=== PATIENT | male | born 1955 | race Caucasian/White ===

== ENCOUNTER 2017-12-11 03:44 | Emergency (ER) | payer SELFPAY ==
--- NOTE | 2017-12-11 04:59 | CT ---
EXAM: CT Head Without Intravenous Contrast CLINICAL HISTORY: Reason: fall TECHNIQUE: Axial computed tomography images of the head/brain without intravenous contrast. CTDI is 57.4 mGy and DLP is 1167.7 mGy-cm. This CT exam was performed using one or more of the following dose reduction techniques: automated exposure control, adjustment of the mA and/or kV according to patient size, and/or use of iterative reconstruction technique. COMPARISON: No relevant prior studies available. FINDINGS: Brain: Unremarkable. No hemorrhage. No significant white matter disease. No edema. Ventricles: Unremarkable. No ventriculomegaly. Bones/joints: Age indeterminate deformity of the left nasal bone. No visualized acute calvarial fracture. Soft tissues: Mild left parietal scalp contusion. Sinuses: Severe mucosal thickening in the nasal cavity. Partial opacification of the left frontoethmoid sinuses. Mastoid air cells: Unremarkable as visualized. No mastoid effusion. IMPRESSION: 1. No acute intracranial hemorrhage or evidence for calvarial fracture. 2. Left parietal scalp contusion. 3. Nasal bone deformities, favored to be chronic. Correlate with focal point tenderness. 4. Severe mucosal disease of the anterior nasal cavity, with mucosal thickening and possible fluid also involving the frontal and ethmoid sinuses. EXAM: CT Cervical Spine Without Intravenous Contrast CLINICAL HISTORY: Reason: fall TECHNIQUE: Axial computed tomography images of the cervical spine without intravenous contrast. CTDI is 57.4 mGy and DLP is 1167.7 mGy-cm. This CT exam was performed using one or more of the following dose reduction techniques: automated exposure control, adjustment of the mA and/or kV according to patient size, and/or use of iterative reconstruction technique. COMPARISON: No relevant prior studies available. FINDINGS: Vertebrae: No evidence for fracture or traumatic malalignment regarding the cervical spine. Discs/spinal canal/neural foramina: Multilevel disc space height loss with osteophytosis. Minimal cervical canal narrowing down to 10 mm. Early facet arthropathy is present with mild neural foraminal stenosis at C5-6 and C6-7. Soft tissues: Unremarkable. Lung apices: Mild apical lung scarring and small blebs. IMPRESSION: No acute CT findings.
--- NOTE | 2017-12-11 06:30 | ED ---
Fall HPI - General Chief Complaint: Fall Stated Complaint: Fall,ETOH Time Seen by Provider: 12/11/17 03:56 Source: patient, family Mode of arrival: wheelchair - History of Present Illness Initial Comments: Patient is a 62-year-old man who is here to be evaluated after a fall and hitting his head. History is from the patient as well as family members. He does admit to drinking. The patient then reportedly fell and struck the left side of his head. Following this she seemed a bit unsteady and family brought him here to have evaluation. He indicates the left temporoparietal area. There was no loss of consciousness. Patient denies neurologic symptoms. He denies pain to the chest, back, abdomen, or extremities. 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 Witnessed: yes, by family Place Fall Occurred: home Loss of Consciousness: none Prolonged Down Time?: no Symptoms Prior to Fall: none Location: head Severity: mild Quality: aching Context: alcohol use Associated Symptoms: headache - Related Data Home Medications Medication Instructions Recorded Confirmed Albuterol Sulfate [Proair Hfa] 1 - 2 puff INHALATION Q6HR PRN 06/12/15 06/13/15 Pravastatin Sodium [Pravachol] 40 mg PO HS 06/12/15 06/13/15 Tadalafil [Cialis] 20 mg PO DAILY PRN 06/12/15 06/13/15 glipiZIDE [Glucotrol] 5 mg PO DAILY 06/12/15 06/13/15 metFORMIN HCL [metFORMIN HCL] 1,000 mg PO BID 06/12/15 06/13/15 Previous Rx's Medication Instructions Recorded HYDROcodone/APAP 7.5-325MG [[place] 1 each PO Q6HR PRN #40 tab 06/13/15 7.5] Allergies Allergy/AdvReac Type Severity Reaction Status Date / Time No Known Allergies Allergy Verified 12/11/17 03:53 Review of Systems ROS Statement: Those systems with pertinent positive or pertinent negative responses have been documented in the HPI. ROS Other: All systems not noted in ROS Statement are negative. Constitutional: Denies: fever, weakness Eyes: Denies: vision change Respiratory: Denies: cough, dyspnea Cardiovascular: Denies: chest pain, syncope Gastrointestinal: Denies: abdominal pain, nausea, vomiting Musculoskeletal: Denies: back pain Skin: Denies: rash Neurological: Reports: headache. Denies: weakness, numbness, paresthesias Hematological/Lymphatic: Denies: easy bleeding Past Medical History Past Medical History: Asthma, Diabetes Mellitus, Hyperlipidemia, Sleep Apnea/ CPAP/BIPAP History of Any Multi-Drug Resistant Organisms: None Reported Past Surgical History: Tonsillectomy Additional Past Surgical History / Comment(s): SIGMOIDOSCOPY Past Anesthesia/Blood Transfusion Reactions: No Reported Reaction Past Psychological History: Depression Smoking Status: Current every day smoker Past Alcohol Use History: Occasional Past Drug Use History: None Reported - Past Family History Mother Family Medical History: Cancer Father Family Medical History: Cancer General Exam Limitations: no limitations General appearance: alert, in no apparent distress, appears intoxicated Head exam: Present: normocephalic, other (There is a scalp hematoma to the left temporal parietal area. No palpable deformity though there is mild localized tenderness.) Eye exam: Present: normal appearance, PERRL, EOMI, nystagmus. Absent: scleral icterus, conjunctival injection ENT exam: Present: normal oropharynx, TM's normal bilaterally, normal external ear exam Neck exam: Present: normal inspection, other (Cervical collar). Absent: tenderness Respiratory exam: Present: normal lung sounds bilaterally. Absent: respiratory distress, wheezes, rales, rhonchi, stridor, chest wall tenderness Cardiovascular Exam: Present: regular rate, normal rhythm, normal heart sounds. Absent: systolic murmur, diastolic murmur, rubs, gallop GI/Abdominal exam: Present: soft. Absent: distended, tenderness, guarding, rebound Extremities exam: Present: normal inspection, normal capillary refill. Absent: pedal edema, calf tenderness Back exam: Present: normal inspection. Absent: vertebral tenderness Neurological exam: Present: alert, oriented X3, CN II-XII intact, other (Mild slurring speech. Mild ataxia). Absent: motor sensory deficit Skin exam: Present: warm, dry, intact, normal color. Absent: rash Course Vital Signs 12/11/17 12/11/17 03:49 06:38 Temperature 97.0 F L 98 F Pulse Rate 88 87 Respiratory 19 18 Rate Blood Pressure 118/75 123/67 O2 Sat by Pulse 96 100 Oximetry Medical Decision Making - Lab Data Lab Results 12/11/17 Range/Units 06:36 POC Glucose (mg/dL) 319 H (75-99) mg/dL POC Glu Search Engine Optimization Analyst ID Bernadine Sharp Disposition Clinical Impression: Fall, Scalp contusion, Head injury, Alcohol intoxication Disposition: HOME SELF-CARE Condition: Fair Instructions: Head Injury (ED), Scalp Contusion in Adults (ED) Referrals: Alexander Carey Jr, DO [Primary Care Provider] - 1-2 days
[2017-12-11 06:39] VITALS: BP 123/67; PULSE 87; RESP 18; TEMP 98
[2017-12-11 06:39] LABS: Glucose,Whole Blood 319 mg/dL (75-99)
== END 2017-12-11 06:40 | disposition home or self-care (01) ==
LOC: EC 03:44
DX: S00.03XA Contusion of scalp, initial encounter (principal); F10.129 Alcohol abuse with intoxication, unspecified; E11.9 Type 2 diabetes mellitus without complications; E78.5 Hyperlipidemia, unspecified; G47.30 Sleep apnea, unspecified; Z99.89 Dependence on other enabling machines and devices; F17.200 Nicotine dependence, unspecified, uncomplicated; Z79.84 Long term (current) use of oral hypoglycemic drugs; Z79.899 Other long term (current) drug therapy; W18.00XA Striking against unspecified object with subsequent fall, initial encounter; Y92.002 Bathroom of unspecified non-institutional (private) residence as the place of occurrence of the external cause
CPT/HCPCS: 36415; 70450; 72125; 99284

== ENCOUNTER 2018-10-01 10:45 | Emergency (ER) | payer BC ==
[2018-10-01 10:49] VITALS: TEMP 97.4
--- NOTE | 2018-10-01 11:02 | ED ---
Upper Extremity HPI <Jayjay Rosas - Last Filed: 10/01/18 11:42> - General Source: patient, RN notes reviewed Mode of arrival: ambulatory Limitations: no limitations <Sharath Cruz - Last Filed: 10/01/18 12:04> - General Chief Complaint: Extremity Injury, Upper Stated Complaint: RT SHOULDER INJURY FROM FALL Time Seen by Provider: 10/01/18 10:51 - History of Present Illness Initial Comments: 62-year-old male presents emergency Department chief complaint right shoulder pain. Patient states that he had socks on and slipped on his tile last night. Patient landed directly on his right shoulder. Denies any head injury no loss conscious. Patient states he only has right shoulder pain. Patient has pain worse with movement. Patient denies any numbness or tingling. Denies any back pain, hip pain. (Sharath Cruz) - Related Data Home Medications Medication Instructions Recorded Confirmed Albuterol Sulfate [Proair Hfa] 1 - 2 puff INHALATION RT-Q6H PRN 06/12/15 metFORMIN HCL 1,000 mg PO BID 06/12/15 10/01/18 Ibuprofen [Motrin Ib] 600 mg PO Q8HR 10/01/18 10/01/18 Allergies Allergy/AdvReac Type Severity Reaction Status Date / Time Fish Containing Products Allergy Anaphylaxis Verified 10/01/18 11:31 shellfish derived Allergy Anaphylaxis Verified 10/01/18 11:31 Review of Systems ROS Other: All systems not noted in ROS Statement are negative. <Jayjay Rosas - Last Filed: 10/01/18 11:42> ROS Other: All systems not noted in ROS Statement are negative. <Sharath Cruz - Last Filed: 10/01/18 12:04> ROS Statement: Those systems with pertinent positive or pertinent negative responses have been documented in the HPI. Past Medical History Past Medical History: Asthma, Diabetes Mellitus, Hyperlipidemia, Sleep Apnea/ CPAP/BIPAP History of Any Multi-Drug Resistant Organisms: None Reported Past Surgical History: Tonsillectomy Additional Past Surgical History / Comment(s): SIGMOIDOSCOPY Past Anesthesia/Blood Transfusion Reactions: No Reported Reaction Past Psychological History: Depression Smoking Status: Current every day smoker Past Alcohol Use History: Occasional Past Drug Use History: None Reported - Past Family History Mother Family Medical History: Cancer Father Family Medical History: Cancer <Sharath Cruz - Last Filed: 10/01/18 12:04> General Exam Limitations: no limitations General appearance: alert, in no apparent distress Head exam: Present: atraumatic, normocephalic, normal inspection Respiratory exam: Present: normal lung sounds bilaterally. Absent: respiratory distress, wheezes, rales, rhonchi, stridor Cardiovascular Exam: Present: regular rate, normal rhythm, normal heart sounds. Absent: systolic murmur, diastolic murmur, rubs, gallop, clicks Extremities exam: Present: other (Right shoulder, tenderness palpation no iris deformity no clavicle tenderness no tenderness over the AC joint, there is no distal humeral tenderness no elbow/forearm tenderness) Back exam: Present: full ROM. Absent: tenderness, paraspinal tenderness, vertebral tenderness Skin exam: Present: warm, dry, intact, normal color. Absent: rash <Sharath Cruz - Last Filed: 10/01/18 12:04> Vital Signs 10/01/18 10/01/18 10/01/18 10:47 11:35 11:38 Temperature 97.4 F L Pulse Rate 99 78 83 Respiratory 22 18 18 Rate Blood Pressure 140/76 133/76 152/101 O2 Sat by Pulse 99 100 100 Oximetry 10/01/18 11:44 Temperature Pulse Rate 61 Respiratory 18 Rate Blood Pressure 164/92 O2 Sat by Pulse 97 Oximetry Procedures - Orthopedic Joint Reduction Joint #1 Consent Obtained: verbal consent Time Out Performed: Yes Joint Reduction Location: shoulder Analgesia: procedural sedation Shoulder Technique Used (if applicable): traction/counter-traction Post-Reduction Neuro Exam: intact Post-Reduction Vascular Exam: intact Post Reduction X-Ray Obtained: Yes Post Reduction X-Ray Results: reduced Splint Applied: Yes Patient Tolerated Procedure: well - Procedural Sedation Procedural Sedation Start Time: 11:35 Procedural Sedation Stop Time: 12:00 Indications: fracture/dislocation reduction ASA Class: I Preparation: court recording monitor applied, pulse oximeter, capnometry used, supplemental O2 applied IV Etomidate Dose (mgs): 12 <Jayjay Rosas - Last Filed: 10/01/18 11:42> Medical Decision Making <Jayjay Rosas - Last Filed: 10/01/18 11:42> <Sharath Cruz - Last Filed: 10/01/18 12:04> - Medical Decision Making I, Gilberto Rosas, personally saw and examined the patient. I have reviewed and agree with the PA findings, including all diagnostic interpretations and treatment plans as written unless otherwise stated. I was present for the putnam portions of any procedures performed and the inclusive time noted for any critical care statement. (Jayjay Rosas) Disposition <Jayjay Rosas - Last Filed: 10/01/18 11:42> Is patient prescribed a controlled substance at d/c from ED?: No Time of Disposition: 12:04 <Sharath Cruz - Last Filed: 10/01/18 12:04> Clinical Impression: Dislocation of right shoulder joint Disposition: HOME SELF-CARE Condition: Stable Instructions: Shoulder Dislocation (ED) Additional Instructions: Please return to the Emergency Department if symptoms worsen or any other concerns. Referrals: Ramone Rosales MD [Primary Care Provider] - 1-2 days Gilles Choudhury DO [Doctor of Osteopathic Medicine] - 1-2 days
[2018-10-01] MEDS ORDERED: ETOMIDATE 2 MG/ML 10 ML VIAL IV STA (11:20)
--- NOTE | 2018-10-01 11:24 | XR ---
EXAMINATION TYPE: XR shoulder limited RT DATE OF EXAM: 10/01/2018 CLINICAL HISTORY: Pain after fall in the right shoulder. TECHNIQUE: 2 views of the right shoulder were obtained. COMPARISON: None. FINDINGS: There is an anterior dislocation of the right shoulder. No distinct Bankart or Hill-Sachs d eformity are seen. There is soft tissue swelling overlying the right shoulder. Visualized ribs appear intact. IMPRESSION: Anterior right shoulder dislocation. Repeat imaging after relocation is recommended.
[2018-10-01 11:38] VITALS: RESP 18
--- NOTE | 2018-10-01 11:59 | XR ---
EXAMINATION TYPE: XR shoulder limited RT DATE OF EXAM: 10/01/2018 CLINICAL HISTORY: Post reduction from right shoulder dislocation. TECHNIQUE: Single view of the right shoulder was obtained. COMPARISON: None. FINDINGS: There is anatomic alignment of the right shoulder status post reduction after anterior disl ocation. No discrete fracture is seen. Acromioclavicular joint appears unremarkable. IMPRESSION: Appropriate alignment status post reduction of a prior anterior right shoulder dislocatio n.
[2018-10-01] MEDS ORDERED: ACET/COD 300 MG/30 MG STARTER PACK 6 TAB BTL PO STA (12:55)
[2018-10-01 13:05] VITALS: BP 138/82; PULSE 70
== END 2018-10-01 13:05 | disposition home or self-care (01) ==
LOC: EC 10:45
DX: S43.004A Unspecified dislocation of right shoulder joint, initial encounter (principal); J45.909 Unspecified asthma, uncomplicated; E11.9 Type 2 diabetes mellitus without complications; G47.30 Sleep apnea, unspecified; Z99.89 Dependence on other enabling machines and devices; F17.200 Nicotine dependence, unspecified, uncomplicated; Z79.1 Long term (current) use of non-steroidal anti-inflammatories (NSAID); Z79.84 Long term (current) use of oral hypoglycemic drugs; Z91.013 Allergy to seafood; W01.0XXA Fall on same level from slipping, tripping and stumbling without subsequent striking against object, initial encounter
CPT/HCPCS: 23650; 99152; 99283

== ENCOUNTER → 2020-08-08 | Outpatient (CLI) | payer MEDICARE, BC ==
--- NOTE | 2020-08-08 17:05 | CONS ---
CONSULTATION DATE OF SERVICE: 08/08/2020 HISTORY OF PRESENT ILLNESS: A 64-year-old gentleman who has been re-evaluated in the Sleep Center for obstructive sleep apnea-hypopnea syndrome. HISTORY OF PRESENT ILLNESS/SLEEP WAKE EVALUATION: Last time I saw patient 5 years ago for a followup visit for treatment of obstructive sleep apnea-hypopnea syndrome. Patient has history of obstructive sleep apnea for more than 10 years, continued to use his CPAP equipment every night for the whole night. His sleep schedule from 11 p.m. to 8 a.m. No problems with falling asleep. No TV in bedroom. He wakes up from sleep once with nocturia. Otherwise, he sleeps well, does not snore, likes his machine and his mask, although she did not change any equipment for 5 years. [place] Sleepiness Scale today is 5. PAST MEDICAL HISTORY: Positive for diabetes mellitus, hyperlipidemia, allergies. PAST SURGICAL HISTORY: Left shoulder arthroscopic surgery. MEDICATIONS: Metformin 1000 mg twice daily, Pioglitazone 30 mg once a day, Atorvastatin 20 mg once a day, Farxiga 10 mg once a day, insulin 26 units at night, TouJeo SoloStar insulin. SOCIAL HISTORY: Positive for smoking for 45 pack years. Patient continues to smoke. Alcohol consumption occasional. FAMILY HISTORY: Hypertension, cancer. PHYSICAL EXAM: gentleman without distress, BP 125/79, HR 87, RR 15, height 5, 9, weight 224.0, temperature 98.2, oxygen saturation at room air 96%. OROPHARYNX: Low position of soft palate. ABDOMEN: Slightly obese. NECK: Supple, no JVD. Thyroid is not palpable. LUNGS: Clear to percussion and to auscultation. Good air exchange. No wheezing or rhonchi. HEART: S1, S2 regular. No murmurs, gallops, or rubs. EXTREMITIES: No clubbing or cyanosis. INCOME TAX CONSULTANT: Awake, alert, and oriented X3. Cranial nerves 2 to 7 intact. There is no fasciculation or atrophy. noted. No focal deficits observed. IMPRESSION: 1. Obstructive sleep apnea-hypopnea syndrome for many years. Patient continues to use his CPAP equipment. CPAP pressure in his machine 11 cm of water. At that pressure, patient sleeps well, does not snore. Mood compliance with therapy. 2. Obesity. 3. Diabetes mellitus. 4. Allergies. 5. Hyperlipidemia. 6. Status post left shoulder arthroscopic surgery. 7. Smoker for 45 pack years. Continues to smoke. PLAN: 1. Prescription for all necessary CPAP supplies, including nasal Mirage FX mask, tube, filters. 2. Patient will continue to use his CPAP equipment every night for the whole night. 3. Sleep hygiene with regular time in bed for 7-1/2 -8 hours. 4. No driving if feeling sleepiness. 5. I discussed with the patient necessity to stop smoking. Please consider smoking cessation program. Followup visit in 6 months. Thank you very much for allowing me to participate in the management of your patient. Sincerely Mathieu Barboza MD, PhD, FAASM Diplomat of [place] [employer] [place] [employer] Product Sales Engineer of [facility] [place] MMODL / IJN: [id number] /
== END | disposition home or self-care (01) ==
LOC: SLEEP 15:42
PROVIDERS: ATTEND Internal Medicine
DX: G47.33 Obstructive sleep apnea (adult) (pediatric) (principal); E66.9 Obesity, unspecified; E11.9 Type 2 diabetes mellitus without complications; E78.5 Hyperlipidemia, unspecified; F17.210 Nicotine dependence, cigarettes, uncomplicated; T78.40XA Allergy, unspecified, initial encounter; Z98.890 Other specified postprocedural states; Z99.89 Dependence on other enabling machines and devices; Z79.891 Long term (current) use of opiate analgesic; Z79.4 Long term (current) use of insulin
CPT/HCPCS: 99211

== ENCOUNTER → 2021-02-14 | Outpatient (CLI) | payer MEDICARE, BC ==
--- NOTE | 2021-02-14 22:31 | SFUN ---
SLEEP CENTER FOLLOW UP NOTE DATE OF SERVICE: 02/14/2021 This 65-year-old gentleman has been followed in Sleep Center for treatment of obstructive sleep apnea-hypopnea syndrome. The patient is using his CPAP equipment every night but feel dryness in his nose. The machine is old. He has some awakenings from sleep. [place] Sleepiness Scale today is 7. I checked his CPAP unit. The CPAP unit is old. Pressure is 11 cm of water. MEDICATIONS: 1. Metformin 1000 mg twice a day. 2. Pioglitazone 30 mg once a day. 3. Atorvastatin 20 mg once a day. 4. 10 mg once a day. 5. Insulin 26 units at night. 6. Toujeo 29 units at night. PHYSICAL EXAMINATION: GENERAL: A pleasant patient in no distress. VITAL SIGNS: BP 135/71, HR 88, RR 15, height 5 feet 9-1/2 inches, weight 232.6 pounds, temperature 97.6, oxygen saturation at room air 96%, body mass index 33.7. HEENT: PERRLA, EOMI. Evaluation of oropharynx showed tongue protrudes midline. Low position of soft palate. NECK: Supple. No JVD. Thyroid is not palpable. LUNGS: Clear to percussion and to auscultation. Good air exchange. No wheezing or rhonchi. HEART: S1, S2 regular. No murmurs, gallops or rubs. ABDOMEN: Obese. EXTREMITIES: No clubbing or cyanosis. DIESEL TRUCK CRANE OPERATOR: Awake, alert, and oriented X3. Cranial nerves 2 to 7 intact. There is no fasciculation or atrophy. noted. No focal deficits observed. IMPRESSION: 1. Obstructive sleep apnea-hypopnea syndrome. Patient continues to use CPAP equipment every night for the whole night. His CPAP unit is more than 15 years old. 2. Obesity. 3. Diabetes mellitus. 4. Allergies. 5. Hyperlipidemia. 6. Status post left shoulder arthroscopic surgery. 7. Smoker for 45 pack/years. Continues to smoke. 8. Heel pain. PLAN: 1. Repeat PAP titration for evaluation of effective CPAP pressure at the present time and also to check the best type of mask fitting. 2. After titration, the patient should receive a new PAP unit. 3. Follow-up visit when he receives his new CPAP unit to evaluate clinical response on treatment and compliance with treatment. 4. Losing weight. 5. No driving if feeling any sleepiness. Thank you very much for allowing me to participate in the management of your patient. Sincerely, Mathieu Barboza MD, PhD, FAASM Diplomat of [place] [employer] [place] [employer] Ore Dryer of [facility] [place] MMJOHNY / KATTY: [id number] /
== END ==
LOC: SLEEP 13:24
PROVIDERS: ATTEND Internal Medicine
DX: G47.33 Obstructive sleep apnea (adult) (pediatric) (principal); E66.9 Obesity, unspecified; E11.9 Type 2 diabetes mellitus without complications; E78.5 Hyperlipidemia, unspecified; F17.200 Nicotine dependence, unspecified, uncomplicated; M79.673 Pain in unspecified foot; Z96.612 Presence of left artificial shoulder joint; Z91.09 Other allergy status, other than to drugs and biological substances; Z68.33 Body mass index [BMI] 33.0-33.9, adult; Z79.4 Long term (current) use of insulin; Z79.899 Other long term (current) drug therapy

== ENCOUNTER 2021-08-13 07:09 | Day surgery (SDC) | payer MEDICARE ==
[2021-08-08 15:36] VITALS: BMI 32.5
[~2021-08-13 07:09] MED LIST: LACTATED RINGERS 1,000 ML IV SCH
[2021-08-13 07:29] VITALS: TEMP 97.2
[2021-08-13] MEDS ORDERED: LACTATED RINGERS 1,000 ML IV ONE (07:29)
[2021-08-13] MEDS ORDERED: LIDOCAINE 1% (10MG/ML) FOR IV START INTRADERMA ONE (07:41)
[2021-08-13 07:51] LABS: Glucose,Whole Blood 113 mg/dL (75-99)
[2021-08-13] MEDS ORDERED: PROPOFOL 10 MG/ML 20 ML VIAL IV ONE (08:09)
--- NOTE | 2021-08-13 08:11 | P.GSHP ---
History of Present Illness H&P Date: 08/13/21 Chief Complaint: Colon cancer screening 65-year-old male here today for colonoscopy. He has not had a colonoscopy before. Father had colon cancer in his 40s. No bowel complaints. Past Medical History Past Medical History: Asthma, Diabetes Mellitus, Hyperlipidemia, Sleep Apnea/CPAP/BIPAP Additional Past Medical History / Comment(s): uses cpap History of Any Multi-Drug Resistant Organisms: None Reported Past Surgical History: Tonsillectomy Additional Past Surgical History / Comment(s): SIGMOIDOSCOPY Past Anesthesia/Blood Transfusion Reactions: No Reported Reaction Smoking Status: Current every day smoker - Past Family History Mother Family Medical History: Cancer Father Family Medical History: Cancer Medications and Allergies Home Medications Medication Instructions Recorded Confirmed Type Albuterol Sulfate [Proair Hfa] 1 - 2 puff INHALATION RT-Q6H PRN 06/12/15 08/08/21 History metFORMIN HCL 1,000 mg PO BID 06/12/15 08/08/21 History Ibuprofen [Motrin Ib] 600 mg PO Q8HR PRN 10/01/18 08/08/21 History Empagliflozin [Jardiance] 25 mg PO DAILY 08/08/21 08/08/21 History Insulin Glargine,Hum.rec.anlog 28 units SQ HS 08/08/21 08/08/21 History [Toroger Solostar] Pioglitazone HCl 30 mg PO DAILY 08/08/21 08/08/21 History Rosuvastatin Calcium 5 mg PO DAILY 08/08/21 08/08/21 History Allergies Allergy/AdvReac Type Severity Reaction Status Date / Time bee venom protein (honey bee) Allergy Anaphylaxis Verified 08/08/21 15:26 Fish Containing Products Allergy Anaphylaxis Verified 08/08/21 15:26 shellfish derived Allergy Anaphylaxis Verified 08/08/21 15:26 Surgical - Exam Vital Signs Temp Pulse Resp BP Pulse Ox 97.2 F L 78 18 127/70 95 08/13/21 07:28 08/13/21 07:28 08/13/21 07:28 08/13/21 07:28 08/13/21 07:28 Physical exam: General: Well-developed, well-nourished HEENT: Normocephalic, sclerae nonicteric Abdomen: Nontender, nondistended Extremities: No edema Neuro: Alert and oriented Results - Labs Abnormal Lab Results - Last 24 Hours (Table) 08/13/21 Range/Units 07:46 POC Glucose (mg/dL) 113 H (75-99) mg/dL Assessment and Plan (1) Colon cancer screening Narrative/Plan: Will proceed with colonoscopy at this time Current Visit: Yes Status: Acute Code(s): Z12.11 - ENCOUNTER FOR SCREENING FOR MALIGNANT NEOPLASM OF COLON SNOMED Code(s): 133534780
--- NOTE | 2021-08-13 08:37 | P.PCN ---
Date of Procedure: 08/13/21 Procedure(s) Performed: PREOPERATIVE DIAGNOSIS: Colon cancer screening, family history of colon cancer in father POSTOPERATIVE DIAGNOSIS:. Colon polyp 2, rectal polyp, diverticulosis, poor prep PROCEDURE: Colonoscopy with snare polypectomy ANESTHESIA: MAC SURGEON: Jared Barnes M.D. SPECIMENS: Polyps ENDOSCOPIC PROCEDURE: The patient was placed on the endoscopy table in the left decubitus position. The Olympus colonoscope was inserted into the anus and passed under direct visualization to the base of the cecum. The appendiceal orifice was visualized. From that point the scope was slowly withdrawn inspecting all surfaces carefully. There were no neoplastic inflammatory or polypoid lesions throughout the cecum or ascending colon. In the transverse colon 2 small polyps were both removed using the snare with cautery technique. The remainder of the transverse descending and sigmoid colon appeared normal. In the rectum a small polyp was seen and removed using snare cautery technique as well. The patient had mild scattered diverticulosis. The patient's prep was suboptimal. Smaller polyps may have been not visualized. Digital rectal examination was normal. The patient was taken to the recovery room in stable condition per anesthesia guidelines. RECOMMENDATIONS: Await biopsies results. Recommend short-term follow-up colonoscopy 2 years given the poor prep. Patient should have 2 day bowel prep at that time.
[2021-08-13 08:47] LABS: Glucose,Whole Blood 105 mg/dL (75-99)
[2021-08-13 08:49] VITALS: PULSE 62
[2021-08-13 09:02] VITALS: BP 115/68; RESP 18
== END 2021-08-13 09:40 | disposition home or self-care (01) ==
LOC: ORWHC2ENDO 07:09
PROVIDERS: ATTEND Surgery
DX: Z12.11 Encounter for screening for malignant neoplasm of colon (principal); K62.1 Rectal polyp; J45.909 Unspecified asthma, uncomplicated; G47.30 Sleep apnea, unspecified; F17.200 Nicotine dependence, unspecified, uncomplicated; E11.9 Type 2 diabetes mellitus without complications; E78.5 Hyperlipidemia, unspecified; Z79.1 Long term (current) use of non-steroidal anti-inflammatories (NSAID); Z79.4 Long term (current) use of insulin; Z80.0 Family history of malignant neoplasm of digestive organs
CPT/HCPCS: 45385; J2704

== ENCOUNTER → 2021-12-04 | Outpatient (CLI) | payer MEDICARE ==
--- NOTE | 2021-12-04 18:26 | SFUN ---
SLEEP CENTER FOLLOW UP NOTE DATE OF SERVICE: 12/04/2021. 66-year-old gentleman has been followed in Sleep Center for treatment of obstructive sleep apnea-hypopnea syndrome. Recently the patient received a new CPAP unit because previous CPAP unit was 15 years old. He started to use new CPAP equipment. He likes it. It works well for him. Today again is his first visit after he was started on treatment with this new CPAP unit. [place] Sleepiness Scale today is 3 which is totally normal. I checked usage of the machine. The patient used it for 83% of the nights and 79% for more than 4 hours with average usage 7 hours 16 minutes, which indicates good compliance, range of the pressure between 6 cm of 12 cm, average pressure 11.8 cm of water. Leak is quite high 61.2 L/minute. At the same time apnea-hypopnea index only 1.7, which is totally normal. MEDICATIONS: Metformin, Pioglitazone, atorvastatin, insulin, Rosuvastatin. PHYSICAL EXAMINATION: GENERAL: Patient in no distress. BP 133/80, HR 76, RR 16, weight 235.8 pounds, temperature 97.4, oxygen saturation at room air 97%. Oropharynx: Low position of soft palate. NECK: Supple, no JVD. Thyroid is not palpable. LUNGS: Clear to percussion and to auscultation. Good air exchange. No wheezing or rhonchi. HEART: S1, S2 regular. No murmurs, gallops, or rubs. ABDOMEN: Soft and nontender. Bowel sounds are present. No organomegaly appreciated. EXTREMITIES: No clubbing or cyanosis. MUSICAL INSTRUMENT MECHANIC: Awake, alert, and oriented X3. Cranial nerves 2 to 7 intact. There is no fasciculation or atrophy. noted. No focal deficits observed. IMPRESSION: 1. Obstructive sleep apnea-hypopnea syndrome. Patient demonstrated good compliance with treatment benefitting from treatment, normal respiration on CPAP. 2. Diabetes mellitus. 3. Obesity. 4. Allergies. 5. Hyperlipidemia. 6. Status post left shoulder arthroscopic surgery. 7. Smoker for more than 45 pack years. Continues to smoke. PLAN: 1. Patient will continue to use PAP equipment every night for the whole night. 2. Sleep hygiene with regular time in bed for at least 7-1/2 to 8 hours. 3. Precautions related to driving. No driving if feeling sleepiness. 4. I will maintain all necessary prescription for PAP supplies including mask, tube, filters. 5. Watching weight. 6. Follow-up visit in 6 months or earlier if patient has any problems. Thank you very much for allowing me to participate in management of your patient. Sincerely, Mathieu Barboza MD, PhD, FAASM Diplomat of [place] Sleep Medicine Board of [place] [employer] Travel Rn Or of [facility] [place] MMODL / IJN: [id number] /
== END ==
LOC: SLEEP 13:12
PROVIDERS: ATTEND Internal Medicine
DX: G47.33 Obstructive sleep apnea (adult) (pediatric) (principal); E11.9 Type 2 diabetes mellitus without complications; E66.9 Obesity, unspecified; T78.40XA Allergy, unspecified, initial encounter; E78.5 Hyperlipidemia, unspecified; F17.210 Nicotine dependence, cigarettes, uncomplicated; Z98.890 Other specified postprocedural states; Z99.89 Dependence on other enabling machines and devices; Z79.4 Long term (current) use of insulin; Z79.84 Long term (current) use of oral hypoglycemic drugs; Z91.030 Bee allergy status; Z91.013 Allergy to seafood

== ENCOUNTER → 2022-07-16 | Outpatient (CLI) | payer MEDICARE ==
--- NOTE | 2022-07-16 12:01 | P.PN ---
Subjective DATE: 07/16/2022 FOLLOW UP VISIT. Patient with obstructive sleep apnea hypopnea syndrome return to sleep center for follow-up visit. Information from previous visit have been reviewed. Patient is using PAP equipment every night for the whole night, getting PAP supplies in time. The patient does not have significant problems with the mask, PAP unit and humidification. [place] sleepiness scale is 3. I checked information from PAP unit and Pap unit. Condition of air filter is extremely bad, needs to be replaced immediately. Nasal mask is old, needs to be replaced. PAP unit pressure 6-12, average 11.9 cm H2O. Usage is 90 % for more then 4 hours, average 7.5 hours per night. Leak is high 43.2 l/m, which is in acceptable range. Apnea Hypopnea Index is 1.0, which is normal. MEDICATIONS:1. Metformin 1000 mg twice a day 2. Rosuvastatin 5 mg once a day 3. Insulin 4. Farxiga 10 mg once a day 5. Pioglitazone 30 mg once a day During physical exam: GENERAL: A pleasant patient without any distress. VITAL SIGNS: BP 135/81, HR 87, RR 18, weight 232.0, temperature 97.6, oxygen saturation at room air 96 % . HEENT: PERRLA, EOMI.low position of soft palate, Mallapati 3. NECK: Supple. No JVD. LUNGS: Clear to percussion and to auscultation. Good air exchange. No wheezing or rhonchi. HEART: S1, S2 regular. ABDOMEN: Soft and nontender. Slightly obese EXTREMITIES: No clubbing or cyanosis. SUPERINTENDENT DRIVERS: Awake, alert, and oriented x3. No focal deficit. Impressions: 1. Obstructive sleep apnea-hypopnea syndrome. Patient demonstrated great compliance with treatment, benefiting from treatment. 2. Diabetes mellitus. 3. Obesity. 4. ALLERGIES. 5. Hyperlipidemia. 6. Status post left shoulder arthroscopic surgery. 7. Smoker for more than 45 years, continue to smoke. Plan: 1. Continue using PAP equipment every night for the whole night. To replace air filter immediately, to replace nasal mask. 2. To change air filter at least 1-2 times per month. 3. PAP unit should stay lower then position of the head. 4. Advised patient to remove all remaining water from humidifier canister daily and make it dry after each usage. Refill canister with fresh distilled water before each usage. 5. Sleep hygiene with regular time in bed for at least 8 hours. 6. Precautions related to driving. No driving if feel any sleepiness. 7. I will maintain prescription for PAP supplies including mask, tube, filters. 8. Follow up visit in 6 months or earlier if patient has any problems. 9. Watching weight. 10. Smoking cessation program. Thank you very much for allowing me to participate in the management of your patient. Mathieu Barboza MD, PhD, FAASM. Diplomat of [employer], Sleep Medicine Board by [employer] Marketing Summer Intern of [facility] [place]
== END ==
LOC: SLEEP 11:01
PROVIDERS: ATTEND Internal Medicine
DX: G47.33 Obstructive sleep apnea (adult) (pediatric) (principal); E66.9 Obesity, unspecified; E78.5 Hyperlipidemia, unspecified; E11.9 Type 2 diabetes mellitus without complications; F17.200 Nicotine dependence, unspecified, uncomplicated; Z79.84 Long term (current) use of oral hypoglycemic drugs; Z79.4 Long term (current) use of insulin; Z91.013 Allergy to seafood; Z91.030 Bee allergy status; Z96.612 Presence of left artificial shoulder joint; Z99.89 Dependence on other enabling machines and devices
CPT/HCPCS: 99212

== ENCOUNTER → 2023-01-14 | Outpatient (CLI) | payer MEDICARE ==
--- NOTE | 2023-01-14 11:57 | P.PN ---
Subjective DATE: [] FOLLOW UP VISIT. Patient with obstructive sleep apnea hypopnea syndrome return to sleep center for follow-up visit. Information from previous visit have been reviewed. Patient is using PAP equipment every night for the whole night, getting PAP supplies in time. The patient does not have significant problems with the mask, PAP unit and humidification. [place] sleepiness scale is 1, which is perfect. I checked information from PAP unit and explained it to the patient in details. PAP unit pressure 6-12, average 12 cm H2O. Usage is 100 % for more then 4 hours, average 8.5 hours per night. Leak is 25.2 l/m, which is in acceptable range. Apnea Hypopnea Index is 0.4, which is absolutely normal. Recent hemoglobin A1c according to patient 7.1. MEDICATIONS:1. Metformin 1000 mg twice a day 2. Farxiga 10 mg once a day 3. Pioglitazone 5 mg once a day 4. Rosuvastatin 5 mg once a day 5. Insulin During physical exam: GENERAL: A pleasant patient without any distress. VITAL SIGNS: BP 126/77, HR 91, RR 18, weight 248, temperature 91.1, oxygen saturation at room air 94 % . HEENT: PERRLA, EOMI.low position of soft palate, Mallapati 3. NECK: Supple. No JVD. LUNGS: Clear to percussion and to auscultation. Good air exchange. No wheezing or rhonchi. HEART: S1, S2 regular. ABDOMEN: Soft and nontender. Slightly obese EXTREMITIES: No clubbing or cyanosis. DESPATCH CLERK: Awake, alert, and oriented x3. No focal deficit. Impressions: 1. Obstructive sleep apnea-hypopnea syndrome. Patient demonstrated great compliance with treatment, benefiting from treatment. 2. Obesity, body mass and is 36.6, patient increased weight 116 pounds comparing with previous visit. 3. Diabetes mellitus. 4. Hyperlipidemia. 5. Smokier for more than 45 years, continues smoking. 6. ALLERGIES. 7. Status post left shoulder arthroscopic surgery. Plan: 1. Continue using PAP equipment every night for the whole night. 2. To change air filter at least 1-2 times per month. 3. PAP unit should stay lower then position of the head. 4. Advised patient to remove all remaining water from humidifier canister daily and make it dry after each usage. Refill canister with fresh distilled water before each usage. 5. Sleep hygiene with regular time in bed for at least 8 hours. 6. Precautions related to driving. No driving if feel any sleepiness. 7. I will maintain prescription for PAP supplies including mask, tube, filters. 8. Follow up visit in 6 months or earlier if patient has any problems. 9. Watching and losing weight. 10. Smoking cessation program. Thank you very much for allowing me to participate in the management of your patient. Mathieu Barboza MD, PhD, FAASM. Diplomat of [place] Board [employer] Medicine, Sleep Medicine Board by [employer] Medicine Tree Warden of [facility] [place]
== END ==
LOC: SLEEP 11:19
PROVIDERS: ATTEND Internal Medicine
DX: G47.33 Obstructive sleep apnea (adult) (pediatric) (principal); E11.9 Type 2 diabetes mellitus without complications; E66.9 Obesity, unspecified; E78.5 Hyperlipidemia, unspecified; Z79.84 Long term (current) use of oral hypoglycemic drugs; Z79.899 Other long term (current) drug therapy; Z68.36 Body mass index [BMI] 36.0-36.9, adult; Z96.611 Presence of right artificial shoulder joint; Z99.89 Dependence on other enabling machines and devices; Z79.4 Long term (current) use of insulin; Z79.02 Long term (current) use of antithrombotics/antiplatelets; Z91.013 Allergy to seafood; F17.200 Nicotine dependence, unspecified, uncomplicated
CPT/HCPCS: 99212

== ENCOUNTER → 2023-07-17 | Outpatient (CLI) | payer MEDICARE ==
--- NOTE | 2023-07-17 11:48 | CTL ---
EXAMINATION TYPE: CT Low Dose Lung DATE OF EXAM ORDERED: 07/17/2023 HISTORY: . Lung cancer screening CT DLP: 100.[address] CTDI: 2.6 mGy Automated exposure control for dose reduction was used. SCREENING VISIT: COMPARISON: TECHNIQUE: Low dose computed tomography scan was performed through the chest at 1 mm thick sections a nd reconstructed images in multiple planes at 1 mm and [address] DIAGNOSTIC QUALITY: Satisfactory FINDINGS: There is a 4 mm calcified granuloma right lower lobe series. There is a left upper lobe 2 mm nodule axial image 53 series 3:30 No additional nodules are seen. Groundglass and subsegmental areas of consolidation most typical of atelectasis. No pleural effusion or pneumothorax. No consolidative pneumonia. Aorta is normal caliber with with mild atherosclerotic changes. There is dense coronary artery three- vessel calcification. Heart size normal. Mild gynecomastia. Small hiatal hernia. There is an exophytic right renal lesion limited by artifact measuring 1 Hounsfi eld unit likely related to simple cyst Bosniak classification I. Mild emphysematous changes. IMPRESSION: 1. Benign-appearing nodules as discussed above. 2. Dense three-vessel coronary artery calcifications correlate clinically. CT LUNG RAD AND CT CHEST RECOMMENDATION: Lung-Rad 2 Benign Appearance or Behavior: Continue annual sc reening with LDCT in 12 months.
== END | disposition home or self-care (01) ==
LOC: RADCTMAIN 10:39
PROVIDERS: ATTEND Family Medicine
DX: Z12.2 Encounter for screening for malignant neoplasm of respiratory organs (principal); F17.210 Nicotine dependence, cigarettes, uncomplicated; R91.8 Other nonspecific abnormal finding of lung field; I25.10 Atherosclerotic heart disease of native coronary artery without angina pectoris
CPT/HCPCS: 71271

== ENCOUNTER → 2023-08-12 | Outpatient (CLI) | payer MEDICARE ==
--- NOTE | 2023-08-12 12:44 | P.PN ---
Subjective DATE: 08/12/2023 FOLLOW UP VISIT. Patient with obstructive sleep apnea hypopnea syndrome return to sleep center for follow-up visit. Information from previous visit have been reviewed. Patient is using PAP equipment every night for the whole night, getting PAP supplies in time. The patient does not have significant problems with the mask, PAP unit and humidification. [place] sleepiness scale is 1, which is perfect. I checked information from PAP unit. PAP unit pressure 6-12, average 11.9 cm H2O. Usage is 100 % for more then 4 hours, average 8.75 hours per night. Leak is increased to 67.0 l/m. Apnea Hypopnea Index is 1.8, which is normal. MEDICATIONS:1. Metformin 1000 mg twice a day 2. Pioglitazone 30 mg once a day 3. Rosuvastatin 5 mg once a day 4. Farxiga 10 mg once a day During physical exam: GENERAL: A pleasant patient without any distress. VITAL SIGNS: BP 124/71, HR 89, RR 16 , weight 239.6, temperature 97.8, oxygen saturation at room air 94 % . HEENT: PERRLA, EOMI.low position of soft palate, Mallapati 3 . NECK: Supple. No JVD. LUNGS: Clear to percussion and to auscultation. Good air exchange. No wheezing or rhonchi. HEART: S1, S2 regular. ABDOMEN: Soft and nontender.[] EXTREMITIES: No clubbing or cyanosis. SPORTS RECRUITER: Awake, alert, and oriented x3. No focal deficit. Impressions: 1. Obstructive sleep apnea-hypopnea syndrome. Patient demonstrated great compliance with treatment, benefiting from treatment. 2. Obesity. 3. Diabetes mellitus. 4. Hyperlipidemia. 5. ALLERGIES. 6. Smoker for 45 years, continue to smoke. Plan: 1. Continue using PAP equipment every night for the whole night. 2. To change air filter at least 1-2 times per month. 3. PAP unit should stay lower then position of the head. 4. Advised patient to remove all remaining water from humidifier canister daily and make it dry after each usage. Refill canister with fresh distilled water before each usage. 5. Sleep hygiene with regular time in bed for at least 8 hours. 6. Precautions related to driving. No driving if feel any sleepiness. 7. I will maintain prescription for PAP supplies including mask, tube, filters. 8. Smoking cessation program. 9. Watching and losing weight. 10.Follow up visit in 6 months or earlier if patient has any problems. Thank you very much for allowing me to participate in the management of your patient. Mathieu Barboza MD, PhD, FAASM. Diplomat of [employer] [place] Board of Sleep Medicine, Sleep Medicine Board by [place] Board of Internal Medicine Desk Reporter of [facility] [place]
== END ==
LOC: 3 N SLEEP 11:02
PROVIDERS: ATTEND Internal Medicine
DX: G47.33 Obstructive sleep apnea (adult) (pediatric) (principal); E66.9 Obesity, unspecified; E11.9 Type 2 diabetes mellitus without complications; F17.200 Nicotine dependence, unspecified, uncomplicated; E78.5 Hyperlipidemia, unspecified; Z79.84 Long term (current) use of oral hypoglycemic drugs; Z99.89 Dependence on other enabling machines and devices; Z91.030 Bee allergy status; Z91.013 Allergy to seafood; Z79.4 Long term (current) use of insulin
CPT/HCPCS: 99212

== ENCOUNTER → 2024-03-23 | Outpatient (CLI) | payer MEDICARE ==
[2024-03-23 11:18] VITALS: BP 116/72; PULSE 76; RESP 16; TEMP 97.9
--- NOTE | 2024-03-23 11:48 | P.PROGSL ---
Subjective DATE: 03/23/2024 FOLLOW UP VISIT. Patient with obstructive sleep apnea hypopnea syndrome return to sleep center for follow-up visit. Information from previous visit have been reviewed. Patient is using PAP equipment every night for the whole night, getting PAP supplies in time. The patient does not have significant problems with the mask, PAP unit and humidification. [place] sleepiness scale is 2 which is perfect. I checked information from PAP unit. PAP unit pressure 6-12, average 11.9 cm H2O. Usage is 100% and 97% for more then 4 hours, average 8.5 hours per night. Leak is 11.9 l/m, which is in acceptable range. Apnea Hypopnea Index is 0.4, which is normal. MEDICATIONS: Please see below During physical exam: GENERAL: A pleasant patient without any distress. VITAL SIGNS: Please see below, weight 240 pounds, BMI 36.4. HEENT: PERRLA, EOMI.low position of soft palate, Mallapati 3. Significant restriction of nasal breathing. NECK: Supple. No JVD. LUNGS: Clear to percussion and to auscultation. Good air exchange. No wheezing or rhonchi. HEART: S1, S2 regular. ABDOMEN: Soft and nontender.[] EXTREMITIES: No clubbing or cyanosis. SERVICE DELIVERY SUPERVISOR: Awake, alert, and oriented x3. No focal deficit. Impressions: 1. Obstructive sleep apnea-hypopnea syndrome. Patient demonstrated great compliance with treatment, benefiting from treatment. 2. Obesity, BMI 36.4. 3. Diabetes mellitus. 4. Hyperlipidemia. 5. Allergies. 6. Smoker for about 45 years, continues to smoke. I teach patient how to adjust temperature in humidifier. Plan: 1. Continue using PAP equipment every night for the whole night. 2. To change air filter at least 1-2 times per month. 3. PAP unit should stay lower then position of the head. 4. Advised patient to remove all remaining water from humidifier canister daily and make it dry after each usage. Refill canister with fresh distilled water before each usage. 5. Sleep hygiene with regular time in bed for at least 8 hours. 6. Precautions related to driving. No driving if feel any sleepiness. 7. I will maintain prescription for PAP supplies including mask, tube, filters. 8. Follow up visit in 6 months or earlier if patient has any problems. 9. Watching and losing weight. 10. We discussed possibility to use nasal strips to help breathing through the nose at night with CPAP. Thank you very much for allowing me to participate in the management of your patient. Mathieu Barboza MD, PhD, FAASM. Diplomat of [place] [employer] of Sleep Medicine, Sleep Medicine Board by [place] [employer] Medicine Pepper Picker of [facility] [place] Objective - Vital Signs Vital Signs: Vital Signs Temp 97.9 F 03/23/24 11:16 Pulse 76 03/23/24 11:16 Resp 16 03/23/24 11:16 BP 116/72 03/23/24 11:16 Pulse Ox 95 03/23/24 11:16 FiO2 Intake & Output 03/22/24 03/23/24 03/23/24 18:59 06:59 18:59 Weight 108.862 kg Home Medications: Home Medications Medication Instructions Recorded Confirmed Type Albuterol Sulfate [Proair Hfa] 1 - 2 puff INHALATION RT-Q6H PRN 06/12/15 03/23/24 History metFORMIN HCL 1,000 mg PO BID 06/12/15 03/23/24 History Ibuprofen [Motrin Ib] 600 mg PO Q8HR PRN 10/01/18 03/23/24 History Empagliflozin [Jardiance] 25 mg PO DAILY 08/08/21 08/08/21 History Insulin Glargine,Hum.rec.anlog 28 units SQ HS 08/08/21 08/08/21 History [[place] Solostar] Pioglitazone HCl 30 mg PO DAILY 08/08/21 03/23/24 History Rosuvastatin Calcium 5 mg PO DAILY 08/08/21 03/23/24 History Dapagliflozin Propanediol [Farxiga] 10 mg PO DAILY 03/23/24 03/23/24 History Insulin Glargine/Lixisenatide 32 units SQ HS 03/23/24 03/23/24 History [Soliqua 100 Unit-33 Mcg/ml Pen]
== END ==
LOC: 3 N SLEEP 10:52
PROVIDERS: ATTEND Internal Medicine
DX: G47.33 Obstructive sleep apnea (adult) (pediatric) (principal); E66.9 Obesity, unspecified; E11.9 Type 2 diabetes mellitus without complications; E78.5 Hyperlipidemia, unspecified; F17.200 Nicotine dependence, unspecified, uncomplicated; Z99.89 Dependence on other enabling machines and devices; Z68.36 Body mass index [BMI] 36.0-36.9, adult; Z91.030 Bee allergy status; Z91.013 Allergy to seafood; Z79.4 Long term (current) use of insulin; Z79.84 Long term (current) use of oral hypoglycemic drugs
CPT/HCPCS: 99212

== ENCOUNTER → 2024-08-15 | Outpatient (CLI) | payer MEDICARE ==
--- NOTE | 2024-08-15 13:45 | CTL ---
EXAMINATION TYPE: CT Low Dose Lung DATE OF EXAM ORDERED: 08/15/2024 COMPARISON: CT Low Dose Lung 07/17/2023 CLINICAL INDICATION: Male, 68 years old with history of Z12.2 ENCNTR SCREEN FOR MALIGNANT NEOPLASM OF RESP; PHH, Personal history of tobacco use, Lung cancer screening, History of Smoking/tobacco use. TECHNIQUE: Low dose computed tomography scan was performed through the chest at 1 mm thick sections a nd reconstructed images in multiple planes at 1 mm and [address] DLP: 131.[address] CTDI: 3.5 mGy Automated exposure control for dose reduction was used. CT DIAGNOSTIC QUALITY: Satisfactory FINDINGS: Nodules: Stable peripheral left upper lobe 3.7 mm pulmonary nodule (series 6, image 10). Stable calcified gran uloma within the right lower lung. No new or enlarging pulmonary nodules. LUNGS: COPD: Severity: Minimal Fibrosis: Severity: None Lymph nodes: None Other findings: Linear atelectasis within the right lower lobe. RIGHT PLEURAL SPACE: Effusion: None Calcification: None Thickening: None Pneumothorax: None LEFT PLEURAL SPACE: Effusion: None Calcification: None Thickening: None Pneumothorax: None HEART: Heart Size: Normal Coronary Calcification: Moderate Pericardial Effusion: None OTHER FINDINGS: Upper abdomen: None Bony thorax: Mild multilevel degenerative disc disease. Supraclavicular region: None Other: Bilateral gynecomastia with left greater than right. Partial visualization of right renal cyst s measuring up to 4.9 cm. IMPRESSION: Stable few pulmonary nodules. No new or enlarging pulmonary nodules. CT LUNG RAD AND CT CHEST RECOMMENDATION: Lung-Rad 2 Benign Appearance or Behavior: Continue annual sc reening with LDCT in 12 months. S Modifier (other clinically significant findings): None [facility], , 08/15/2024 1:43 PM
== END | disposition home or self-care (01) ==
LOC: RADCTMAIN 12:55
PROVIDERS: ATTEND Family Medicine
DX: Z12.2 Encounter for screening for malignant neoplasm of respiratory organs (principal); F17.210 Nicotine dependence, cigarettes, uncomplicated; R91.8 Other nonspecific abnormal finding of lung field
CPT/HCPCS: 71271

== ENCOUNTER → 2024-12-22 | Outpatient (CLI) | payer MEDICARE ==
[2024-12-22 11:20] VITALS: BP 118/70; PULSE 85; RESP 16; TEMP 98.1
--- NOTE | 2024-12-22 11:41 | P.PROGSL ---
Subjective DATE: 12/22/2024 FOLLOW UP VISIT. Patient with obstructive sleep apnea hypopnea syndrome return to sleep center for follow-up visit. Information from previous visit have been reviewed. Patient is using PAP equipment every night for the whole night, getting PAP supplies in time. The patient does not have significant problems with the mask, PAP unit and humidification. [place] sleepiness scale is 2, which is perfect. I checked information from PAP unit. PAP unit pressure 6-12, average 11.8 cm H2O. Usage is 100% for more then 4 hours, average 9 hours per night. Leak is increased to 38.2 l/m, patient did not change his mask for a while. Apnea Hypopnea Index is 0.3, which is perfect. MEDICATIONS have been reviewed, please see below. During physical exam: GENERAL: A pleasant patient without any distress. VITAL SIGNS: Please see below, weight is 213.6 lbs. HEENT: PERRLA, EOMI.low position of soft palate, Mallapati 3. NECK: Supple. No JVD. LUNGS: Clear to percussion and to auscultation. Good air exchange. No wheezing or rhonchi. HEART: S1, S2 regular. ABDOMEN: Soft and nontender.[] EXTREMITIES: No clubbing or cyanosis. MITER SAW OPERATOR: Awake, alert, and oriented x3. No focal deficit. Impressions: 1. Obstructive sleep apnea-hypopnea syndrome. Patient demonstrated great compliance with treatment, benefiting from treatment. 2. Obesity, BMI 32.1, patient lost 27 pounds comparing with the previous visit. 3. Diabetes mellitus. 4. Hyperlipidemia. 5. Allergies. 6. Smoker for more than 45 years, continue to smoke. Plan: 1. Continue using PAP equipment every night for the whole night. 2. Sleep hygiene with regular time in bed for at least 7.5-8 hours 3. PAP unit should stay lower then position of the head. 4. Advised patient to remove all remaining water from humidifier canister daily and make it dry after each usage. Refill canister with fresh distilled water before each usage. 5. Watching weight. 6. Precautions related to driving. No driving if feel any sleepiness. 7. I will maintain prescription for PAP supplies including mask, tube, filters. 8. Follow up visit in 8 months or earlier if patient has any problems. 9. Smoking cessation program. Thank you very much for allowing me to participate in the management of your patient. Mathieu Barboza MD, PhD, FAASM. Diplomat of [place] [employer] Sleep Medicine, Sleep Medicine Board by [place] [employer] Parking Meter Collector of [facility] [place] Objective - Vital Signs Vital Signs: Vital Signs Temp 98.1 F 12/22/24 11:17 Pulse 85 12/22/24 11:17 Resp 16 12/22/24 11:17 BP 118/70 12/22/24 11:17 Pulse Ox 96 12/22/24 11:17 FiO2 Intake & Output 12/21/24 12/22/24 12/22/24 18:59 06:59 18:59 Weight 96.785 kg Home Medications: Home Medications Medication Instructions Recorded Confirmed Type Albuterol Sulfate [Proair Hfa] 1 - 2 puff INHALATION RT-Q6H PRN 06/12/15 03/23/24 History metFORMIN HCL 1,000 mg PO BID 06/12/15 12/22/24 History Ibuprofen [Motrin Ib] 600 mg PO Q8HR PRN 10/01/18 03/23/24 History Empagliflozin [Jardiance] 25 mg PO DAILY 08/08/21 08/08/21 History Insulin Glargine,Hum.rec.anlog 28 units SQ HS 08/08/21 08/08/21 History [Stevie Marquez] Pioglitazone HCl 30 mg PO DAILY 08/08/21 12/22/24 History Rosuvastatin Calcium 5 mg PO DAILY 08/08/21 12/22/24 History Dapagliflozin Propanediol [Farxiga] 15 mg PO DAILY 03/23/24 12/22/24 History Insulin Glargine/Lixisenatide 26 units SQ HS 03/23/24 12/22/24 History [Soliqua 100 Unit-33 Mcg/ml Pen]
== END ==
LOC: 3 N SLEEP 11:01
PROVIDERS: ATTEND Internal Medicine
DX: G47.33 Obstructive sleep apnea (adult) (pediatric) (principal); E66.9 Obesity, unspecified; E11.9 Type 2 diabetes mellitus without complications; E78.5 Hyperlipidemia, unspecified; F17.210 Nicotine dependence, cigarettes, uncomplicated; Z68.32 Body mass index [BMI] 32.0-32.9, adult; Z91.030 Bee allergy status; Z91.013 Allergy to seafood
CPT/HCPCS: 99212